=== PATIENT | male | born 1960 | race Caucasian/White ===

== ENCOUNTER 2020-07-21 20:33 | Emergency (ER) | payer OTHER ==
--- NOTE | 2020-07-21 23:29 | ER Document Report ---
HPI - HPI Patient complains to provider of: Foreign body bilateral ears Time Seen by Provider: 07/21/20 23:19 Pain Level: Denies Context: 60-year-old male past medical history significant for hypertension, diabetes, hyperlipidemia presents to the emergency room with concerns for possible piece of hearing aids in bilateral areas. States he took his hearing aids around 5 PM and noticed that the black tip was missing. States he tried to put Q-tips in his ears without success is concerned there is still part of the hearing aid in both of his ears. He denies any pain. Associated Symptoms: None Exacerbated by: Denies Relieved by: Denies Similar symptoms previously: No Recently seen / treated by doctor: No - ROS Systems Reviewed and Negative: Yes All other systems reviewed and negative - CONSTITUTIONAL Constitutional: DENIES: Fever, Chills - EENT EENT: DENIES: Ear Pain Notes: Questionable foreign body bilateral ear canals - DERM Skin Color: Normal, [place] Skin Problems: None Past Medical History - General Information source: Patient - Social History Smoking Status: Never Smoker Frequency of alcohol use: None Drug Abuse: None Family History: Reviewed & Not Pertinent Patient has homicidal ideation: No - Past Medical History Cardiac Medical History: Reports: Hx Hypercholesterolemia, Hx Hypertension Vertical Provider Document - CONSTITUTIONAL Agree With Documented VS: Yes Exam Limitations: No Limitations General Appearance: No Apparent Distress - INFECTION CONTROL TRAVEL OUTSIDE OF THE [place] IN LAST 30 DAYS: No - HEENT HEENT: Atraumatic, Normal ENT Exam, Normocephalic. negative: Pharyngeal Exudate, Pharyngeal Tenderness, Pharyngeal Erythema, Tympanic Membrane Red, Tympanic Membrane Bulging Notes: No foreign bodies noted in bilateral ear canals. Tympanic membranes are visualized to both ears. Outer ear canals without erythema swelling or foreign bodies noted. - NECK Neck: Normal Inspection, Supple - RESPIRATORY Respiratory: Breath Sounds Normal, No Respiratory Distress - CARDIOVASCULAR Cardiovascular: Regular Rate, Regular Rhythm, No Murmur - MUSCULOSKELETAL/EXTREMETIES Musculoskeletal/Extremeties: FROM - NEURO Level of Consciousness: Awake, Alert, Appropriate Motor/Sensory: No Motor Deficit, No Sensory Deficit - DERM Integumentary: Warm, Dry, No Rash Course - Re-evaluation Re-evalutation: 07/21/20 23:27 Patient was counseled that there are no foreign bodies noted to his bilateral ear canals. He was counseled not to put Q-tips in his ears. Follow-up with his primary care physician as needed. Patient was given strict return to the emergency room guidelines. Return for any new or worsening symptoms. All questions were answered. Patient verbalized understanding and agrees with plan of care. - Vital Signs Vital signs: Temp Pulse Resp BP Pulse Ox 98.4 F 85 16 130/87 H 07/21/20 20:46 07/21/20 20:46 07/21/20 20:46 07/21/20 20:46 Discharge - Discharge Clinical Impression: Foreign body sensation in both ear canals Condition: Stable Disposition: HOME, SELF-CARE Additional Instructions: There were no foreign bodies noted in your ear canals. Follow-up with your [facility] if still having sensation of foreign bodies in the next 2 days. Return to the emergency room for any new or worsening symptoms.
[2020-07-21 23:31] VITALS: BP 175/79
== END 2020-07-21 23:30 | disposition home or self-care (01) ==
LOC: ER 20:33
DX: Z71.1 Person with feared health complaint in whom no diagnosis is made (principal); I10 Essential (primary) hypertension
CPT/HCPCS: 99282